=== PATIENT | female | born 1965 | race Hispanic/Latino ===

== ENCOUNTER → 2024-09-26 | Day surgery (SDC) | payer BC ==
[~2024-09-26] MED LIST: ALENDRONATE SOD70 MG; CALTRATE 600 +1 EAC1; FENTANYL CITRATE/PF 100MCG/2 ML INJ ONE; MIDAZOLAM HCL 2 MG/2 ML VIAL ONE; MINOXIDIL2.5 MG PO; PROPOFOL IV EMULSION 10 MG/ML 20 ML VIAL ONE; TRAZODONE HCL50 MG PO; VITAMIN D31 ML
[2024-09-26] MEDS: LACTATED RINGER'S 1,000 ML ONE (15:16)
[2024-09-26 16:48] VITALS: TEMP 97.5
[2024-09-26 17:20] VITALS: BP 123/83; PULSE 57; RESP 16; O2SAT 97
== END | disposition home or self-care (01) ==
LOC: OR 14:31
PROVIDERS: ATTEND Internal Medicine Gastroenterology
DX: Z12.11 Encounter for screening for malignant neoplasm of colon (principal); K64.8 Other hemorrhoids; M81.0 Age-related osteoporosis without current pathological fracture; Z79.899 Other long term (current) drug therapy; Z87.898 Personal history of other specified conditions
CPT/HCPCS: 45378; J2250; J2704; J3010; J7121